=== PATIENT | female | born 1965 ===

== ENCOUNTER 2024-10-12 07:07 | Day surgery (SDC) | payer OTHER ==
[2024-10-04 09:44] VITALS: BP 126/83
[2024-10-04 10:42] LABS: BASO % 0.8 % (0.1-1.2); EOS # 0.05 (0.04-0.54); HEMOGLOBIN 12.6 g/dL (11.2-15.7); LYMPH # 2.23 (1.18-3.74); LYMPH % 45.1 % (19.3-53.1); MONO # 0.41 (0.24-0.82); MONO % 8.3 % (4.7-12.5); NEUT % 44.6 % (34.0-71.1); PLATELET COUNT 207 K/uL (163-369); RED BLOOD COUNT 4.67 M/uL (3.93-5.22); RED CELL DISTRIBUTION WIDTH 15.9 % (11.6-14.4)
[2024-10-04 10:43] LABS: PH,URINE 6.5 (5.0-8.0); URINE APPEARANCE Clear; URINE BILIRRUBIN Negative (NEGATIVE); URINE BLOOD Negative; URINE COLOR Yellow; URINE GLUCOSE Negative (NEGATIVE); URINE KETONE Negative (NEGATIVE); URINE LEUKOCYTE Negative; URINE NITRATE Negative; URINE PROTEIN Negative (NEGATIVE); URINE UROBILINOGEN 0.2 E.U./dl
[2024-10-04 10:48] LABS: URINE BACTERIA 124.8 uL (0.0-1933); URINE EPITHELIAL CELLS 4.4 uL (0.0-38.8); URINE RBC 4.8 uL (0.0-20.8); URINE WBC 2.5 uL (0.0-23.2)
[2024-10-04 10:54] LABS: URINE CAST 0.14 uL (0.0-1.40)
[2024-10-04 11:00] LABS: INR 1.05; PARTIAL THROMBOPLASTIN TIME 28.2 SECONDS (22.0-34.0); PROTHROMBIN TIME 11.4 SECONDS (9.0-11.5)
[2024-10-04 12:55] LABS: BILIRUBIN TOTAL 0.73 mg/dL (0.3-1.2); CALCIUM 9.4 mg/dL (8.5-10.1); CREATININE SERUM 0.58 mg/dL (0.55-1.02); GFR 107.15; GLOBULINA 3.8 G/DL (2.4-3.5); POTASSIUM 4.23 mEq/L (3.5-5.1); TOTAL PROTEIN 7.8 gm/dL (6.4-8.2)
[~2024-10-12] VITALS: Ht 157.5 cm; Wt 63.5 kg
[2024-10-12] MEDS ORDERED: CEFAZOLIN SODIUM 1,000 MG VIAL ONE (11:54)
[2024-10-12] MEDS ORDERED: POVIDONE-IODINE 118 ML BOTT TOP ONE (12:45)
[2024-10-12] MEDS ORDERED: DOXYCYCLINE HY100 M2 PO (14:26)
[2024-10-12] MEDS ORDERED: IBU600 MG PO (14:27)
== END 2024-10-12 16:55 | disposition home or self-care (01) ==
LOC: CIR.AMB 07:07
PROVIDERS: ATTEND Obstetrics & Gynecology
DX: D25.0 Submucous leiomyoma of uterus (principal); N95.0 Postmenopausal bleeding; N84.0 Polyp of corpus uteri